=== PATIENT | male | born 1945 | race Caucasian/White ===

== ENCOUNTER → 2017-06-04 | Outpatient (REF) | payer MEDICARE, OTHER ==
[2017-06-10 00:06] LABS: L PNEUMOPHILIA 1-6 IgM < 1:16 (< 1:16); MYCOPLASMA PNEUMONIAE IgG 209 U/mL (0-99); MYCOPLASMA PNEUMONIAE IgM <770 U/mL (0-769)
[2017-06-10 00:06] LABS: L PNEUMOPHILIA 1-6 IgG <1:128 (<1:128)
== END ==
LOC: M LAB REF 13:04
DX: R05 Cough (principal)
CPT/HCPCS: 86713